=== PATIENT | male | born 1965 ===

== ENCOUNTER 2023-01-09 04:21 | Day surgery (SDC) | payer OTHER ==
[2023-01-07 14:45] VITALS: BMI 32.5
[2023-01-09 10:11] VITALS: TEMP 97.4
[2023-01-09 10:44] VITALS: BP 104/63; PULSE 68; RESP 20
== END 2023-01-09 10:30 | disposition home or self-care (01) ==
LOC: JASU-ENDO 04:21
PROVIDERS: ATTEND Internal Medicine Gastroenterology
PROC: 0DBM8ZX Excision of Descending Colon, Via Natural or Artificial Opening Endoscopic, Diagnostic (ICD-10-PCS; principal; 2023-01-09 11:00)
DX: Z12.11 Encounter for screening for malignant neoplasm of colon (principal); D12.4 Benign neoplasm of descending colon; K64.8 Other hemorrhoids
CPT/HCPCS: 88305-TC